=== PATIENT | male | born 1945 | race Caucasian/White ===

== ENCOUNTER → 2022-05-20 | Outpatient (CLI) | payer MEDICARE ==
[2022-05-20 13:24] LABS: African American GFR (CKD) >90 (>60 ml/min/1.73 sqM); Blood Urea Nitrogen 14 mg/dL (9-20); Non-African American GFR(CKD) 84 (>60 ml/min/1.73 sqM)
--- NOTE | 2022-05-20 14:45 | CT ---
EXAMINATION TYPE: CT angio chest DATE OF EXAM: 05/20/2022 COMPARISON: Chest x-ray April 10, 2022 HISTORY: Shortness of breath and possible PE CT DLP: 140.80 mGycm. Automated Exposure Control for Dose Reduction was Utilized. CONTRAST: CTA scan of the thorax is performed without and with IV Contrast, patient injected with 100 ml mL of Isovue 370, pulmonary embolism protocol. MIP Images are created on CT scanner and reviewed. FINDINGS: LUNGS: Mild linear scarring in the left upper lobe coronal image 38 is redemonstrated. No suspicious focal consolidation. There is no pleural effusion or pneumothorax seen. The tracheobronchial tree i s patent. MEDIASTINUM: There is satisfactory enhancement of the pulmonary artery and its branches, there is no CT evidence for pulmonary embolism. There are no greater than 1 cm hilar or mediastinal lymph nodes. No cardiomegaly or pericardial effusion is seen. Coronary artery calcification is seen which is no talya marker for underlying coronary artery disease. There is right subclavian Mediport catheter which is now retracted slightly and terminating in the right brachiocephalic vein cranial to the left-sided brachiocephalic confluence. OTHER: A few scattered small simple parenchymal cysts throughout the liver are present. Slight scolio tic curvature in the spine. IMPRESSION: No CT evidence for acute pulmonary embolism. Mild left lung linear scarring. No suspiciou s acute pulmonary process. Interval slight retraction of the right subclavian Mediport catheter tip.
== END | disposition home or self-care (01) ==
LOC: RADCTMAIN 12:44
PROVIDERS: ATTEND Internal Medicine Hematology & Oncology
DX: J98.4 Other disorders of lung (principal)
CPT/HCPCS: 82565; 84520; 71275; 36415; Q9967

== ENCOUNTER → 2022-05-29 | Day surgery (SDC) | payer MEDICARE ==
[~2022-05-29] MED LIST: IOPAMIDOL-370 50ML BTL INJ ONE
[2022-05-29 12:40] VITALS: BP 171/83; PULSE 65; RESP 16; TEMP 97.9
--- NOTE | 2022-05-29 13:09 | IR ---
Port-A-Cath check HISTORY: Unable to aspirate port, port malfunction The patient's indwelling port was evaluated under real-time fluoroscopy. Gentle hand-injection of con trast material was performed. 336 images were obtained. 0.5 minutes fluoroscopy time. The port shows no leak. Distal tip the catheter is overlying the innominate vein level. Upon injectio n of the catheter the contrast shows retrograde flow along the catheter, there is abnormal collection of contrast material with some intravenous flow. IMPRESSION: Findings suggest fibrin sheath, clot at the level of the distal tip of the catheter. Refe rring clinician's notified at the time of performance of the exam.
--- NOTE | 2022-06-03 10:43 | IR ---
EXAMINATION TYPE: IR cvc insert >=5 years DATE OF EXAM: 05/30/2022 COMPARISON: Port-A-Cath check same date CLINICAL HISTORY: Malfunctioning port Needs long-term intravenous access for chemotherapy. PROCEDURE: Hand hygiene obtained with soap and water and alcohol-based hand rub. After informed consent, the skin overlying the left basilic vein was localized with ultrasound and no talya to be compressible and patent. An ultrasound image was obtained and submitted on the patient's c mccall. The overlying skin was prepped and draped and Lidocaine was used for local anesthesia. A skin armando was made with a scalpel. Access was gained to the vein under ultrasound guidance with a 21 gau ge needle and a 0.018 inch wire was advanced. Access site was dilated with Peel-Away sheath and cath eter tailored to the appropriate length and advanced such that the distal tip is at the cavoatrial ju nction. Spot image was obtained verifying placement. Catheter was fixed to the skin and a sterile d ressing was placed following hemostasis. Catheter was aspirated and flushed with saline. Patient wa s discharged in stable condition without complication.Maximal barrier technique is utilized. Ultraso und image is documented on the chart. Ultrasound used with sterile technique. Fluoro time and fluoroscopic images submitted to document procedure: 164 intraoperative C-arm images, 0.3 minutes fluoroscopy time IMPRESSION: STATUS POST ULTRASOUND AND FLUOROSCOPIC GUIDED PICC LINE PLACEMENT, READY FOR USE. THIS PROCEDURE WAS PERFORMED BY THE UNDERSIGNED.
== END ==
LOC: CATHCVL 12:00
PROVIDERS: ATTEND Radiology Diagnostic Radiology
DX: T82.599A Other mechanical complication of unspecified cardiac and vascular devices and implants, initial encounter (principal); C84.A0 Cutaneous T-cell lymphoma, unspecified, unspecified site; I10 Essential (primary) hypertension; E78.5 Hyperlipidemia, unspecified; M10.9 Gout, unspecified; Z96.652 Presence of left artificial knee joint; Z98.890 Other specified postprocedural states; Z79.899 Other long term (current) drug therapy; Z79.52 Long term (current) use of systemic steroids; Z80.7 Family history of other malignant neoplasms of lymphoid, hematopoietic and related tissues; Z86.19 Personal history of other infectious and parasitic diseases
CPT/HCPCS: 36598; 36573; C1751; C1769; J1642; Q9967

== ENCOUNTER → 2022-06-20 | Outpatient (CLI) | payer MEDICARE ==
[~2022-06-20] MED LIST changes: -IOPAMIDOL-370 50ML BTL INJ ONE; +TIXAGEVIMAB/CILGAVIMAB (EUA) 300 MG/3 ML COMBO.PKG IM NR
[2022-06-20 10:20] VITALS: RESP 16; TEMP 98
[2022-06-20 11:02] VITALS: BP 149/74; PULSE 77
== END | disposition home or self-care (01) ==
LOC: PROCWHC3 09:58
PROVIDERS: ATTEND Internal Medicine Hematology & Oncology
DX: Z23 Encounter for immunization (principal)
CPT/HCPCS: Q0220; M0220